=== PATIENT | female | born 1980 | race Hispanic/Latino ===

== ENCOUNTER 2017-04-02 13:58 | Emergency (ER) | payer SELFPAY ==
[2017-04-02 15:21] LABS: APPEARANCE,URINE Cloudy (CLEAR); BILIRUBIN,URINE Negative (NEGATIVE); COLOR,URINE Yellow (YELLOW); GLUCOSE, URINE (UA) Negative (NEGATIVE); KETONES,URINE Negative (NEGATIVE); LEUKOCYTE ESTERASE ,URINE Small (NEGATIVE); NITRATE,URINE Negative (NEGATIVE); OCCULT BLOOD,URINE Negative (NEGATIVE); PROTEIN,URINE Negative (NEGATIVE); UROBILINOGEN,URINE 0.2 mg/dL (0.2-1.0)
[2017-04-02 15:23] LABS: HCG,QUAL RESULT NEGATIVE (NEGATIVE)
[2017-04-02] MEDS ORDERED: IBUPROFEN 600 MG TABLET ONE (15:37)
[2017-04-02 15:38] LABS: BACTERIA,URINE Few /HPF (None Seen); RBC,URINE None Seen /HPF (0-1); WBC,URINE 0-1 /HPF (0-1)
== END 2017-04-02 16:01 | disposition home or self-care (01) ==
LOC: EDH 13:58
DX: S50.01XA Contusion of right elbow, initial encounter (principal); S80.02XA Contusion of left knee, initial encounter; R10.9 Unspecified abdominal pain; J45.909 Unspecified asthma, uncomplicated; Y04.8XXA Assault by other bodily force, initial encounter; Y93.89 Activity, other specified; Y92.098 Other place in other non-institutional residence as the place of occurrence of the external cause; Y99.8 Other external cause status
CPT/HCPCS: 81001; 81025

== ENCOUNTER 2019-04-18 05:12 | Emergency (ER) | payer SELFPAY | END 2019-04-18 06:20 | LOC: EDH 05:12 | DX: Z02.89 Encounter for other administrative examinations (principal); J45.909 Unspecified asthma, uncomplicated; M19.90 Unspecified osteoarthritis, unspecified site; Z98.890 Other specified postprocedural states; Z72.0 Tobacco use | CPT/HCPCS: 93005 ==

== ENCOUNTER 2021-11-12 23:38 | Emergency (ER) | payer OTHER ==
[~2021-11-12] VITALS: Ht 160 cm; Wt 176.4 kg
[~2021-11-12 23:38] MED LIST: BUDE90AE IH; CEFD300C3 PO; HYDR12.54 PO; HYDR25TA PO; LEVA15HF3 IH; METO50TA18 PO; NITR0.4T50 SL; OXYB5TAB27 PO; PHEN-948 PO; TAMS-1 PO; TRAM50TA4 PO
[2021-11-13 00:30] LABS: APPEARANCE,URINE CLEAR (CLEAR); BILIRUBIN,URINE NEGATIVE (NEGATIVE); COLOR,URINE YELLOW (YELLOW); GLUCOSE, URINE (UA) NEGATIVE (NEGATIVE); KETONES,URINE 5 mg/dL (NEGATIVE); LEUKOCYTE ESTERASE ,URINE NEGATIVE (NEGATIVE); NITRATE,URINE NEGATIVE (NEGATIVE); OCCULT BLOOD,URINE NEGATIVE (NEGATIVE); PH,URINE 6.5 (5.0-8.0); PROTEIN,URINE NEGATIVE (NEGATIVE); UROBILINOGEN,URINE 0.2 mg/dL (0.2-1.0)
[2021-11-13] MEDS ORDERED: POLYOS OD (01:28)
[2021-11-13 01:33] VITALS: BP 124/68
== END 2021-11-13 01:38 | disposition home or self-care (01) ==
LOC: EDH 23:38
DX: B34.9 Viral infection, unspecified (principal); H10.9 Unspecified conjunctivitis; Z20.822 Contact with and (suspected) exposure to COVID-19; I10 Essential (primary) hypertension; J45.909 Unspecified asthma, uncomplicated; Z79.51 Long term (current) use of inhaled steroids; Z79.899 Other long term (current) drug therapy; Z90.49 Acquired absence of other specified parts of digestive tract
CPT/HCPCS: 99283; 87635; 87880; 87804 ×2; 81003; 81025; C9803

== ENCOUNTER 2022-08-01 10:03 | Emergency (ER) | payer OTHER ==
[~2022-08-01] VITALS: Ht 157.5 cm; Wt 177.8 kg
[~2022-08-01 10:03] MED LIST changes: +ACET-2079 PO; +AMOX-426 PO; +DICY20TA2 PO; +ONDA-104 PO; +PANT40TA54 PO; +POLYOS OD
[2022-08-01 11:00] LABS: HEMATOCRIT 38.6 % (36-48); MEAN CORPUSCULAR HEMOGLOBIN 29.1 pg (27.0-33.0); MEAN CORPUSCULAR HGB CONC 31.9 g/dL (32.0-36.0); MEAN CORPUSCULAR VOLUME 91.5 fL (79-99); RED BLOOD CELL COUNT(AUTO) 4.22 MIL/uL (4.00-5.50); RED CELL DISTRIBUTION WIDTH 14.3 % (11.0-15.5); WHITE BLOOD COUNT (AUTO) 7.8 K/uL (4.8-10.8)
[2022-08-01 11:07] LABS: CARBON DIOXIDE 32 mmol/L (21-32); CHLORIDE 104 mmol/L (101-111); CREATININE 0.8 mg/dL (0.5-1.5); GLOMERULAR FILTR. RATE CALC 95 mL/min (>90); GLUCOSE,RANDOM 110 mg/dL (70-105); POTASSIUM 3.9 mmol/L (3.5-5.1); SODIUM SERUM 141 mmol/L (136-145); UREA NITROGEN, BLOOD 11 mg/dL (7-18)
[2022-08-01 11:12] LABS: ALANINE AMINOTRANSFERASE 21 U/L (12-78); ALBUMIN 3.3 g/dL (3.5-5.0); ASPARTATE AMINOTRANSFERASE 16 U/L (10-37); TOTAL PROTEIN, SERUM 7.3 g/dL (6.0-8.3)
[2022-08-01 11:18] LABS: AMPHET/METH SCREEN,URINE NEGATIVE (NEGATIVE); BARBITURATE SCREEN, URINE NEGATIVE (NEGATIVE); BENZODIAZEPINES SCREEN,URINE NEGATIVE (NEGATIVE); CANNABINOID SCREEN,URINE NEGATIVE (NEGATIVE); COCAINE SCREEN,URINE NEGATIVE (NEGATIVE); OPIATE SCREEN,URINE NEGATIVE (NEGATIVE); PHENCYCLIDINE SCREEN,URINE NEGATIVE (NEGATIVE)
[2022-08-01 11:28] LABS: APPEARANCE,URINE CLEAR (CLEAR); BILIRUBIN,URINE NEGATIVE (NEGATIVE); COLOR,URINE LIGHT-YELLOW (YELLOW); GLUCOSE, URINE (UA) NEGATIVE (NEGATIVE); KETONES,URINE NEGATIVE (NEGATIVE); LEUKOCYTE ESTERASE ,URINE 500 Leu/uL (NEGATIVE); NITRATE,URINE NEGATIVE (NEGATIVE); PH,URINE 5.5 (5.0-8.0); PROTEIN,URINE NEGATIVE (NEGATIVE); UROBILINOGEN,URINE 0.2 mg/dL (0.2-1.0)
[2022-08-01 11:38] LABS: MUCUS,URINE RARE LPF (None Seen); SQUAMOUS EPITHELIAL CELL,UR FEW /HPF (0-2)
[2022-08-01 12:15] VITALS: BP 131/69
[2022-08-01] MEDS ORDERED: CEPH500C2 PO (12:36)
== END 2022-08-01 12:50 | disposition home or self-care (01) ==
LOC: EDH 10:03
DX: R00.2 Palpitations (principal); N39.0 Urinary tract infection, site not specified; J45.909 Unspecified asthma, uncomplicated; I10 Essential (primary) hypertension; K21.9 Gastro-esophageal reflux disease without esophagitis; M79.7 Fibromyalgia; Z79.51 Long term (current) use of inhaled steroids; Z79.899 Other long term (current) drug therapy; Z90.49 Acquired absence of other specified parts of digestive tract
CPT/HCPCS: 36415; 71045; 80053; 80305; 81001; 84484; 85027; 87088; 93005

== ENCOUNTER 2023-01-14 18:04 | Emergency (ER) | payer BC, OTHER ==
[~2023-01-14] VITALS: Ht 160 cm; Wt 181.4 kg
[~2023-01-14 18:04] MED LIST changes: +CEPH500C2 PO
[2023-01-14] MEDS ORDERED: 0.9%NACL 1000ML 1,000 ML IV ONE (19:30)
[2023-01-14] MEDS ORDERED: ONDANSETRON 4MG INJ IVP ONE (19:30)
[2023-01-14 19:49] LABS: BASOPHILS # (AUTO) 0.01 K/uL (0.00-0.20); BASOPHILS % (AUTO) 0.2 % (0.0-5.0); EOSINOPHILS # (AUTO) 0.02 K/uL (0.00-0.70); EOSINOPHILS % (AUTO) 0.4 % (0.0-8.0); HEMATOCRIT 37.7 % (36-48); IMMATURE GRANULOCYTE ABSOLUTE 0.02 K/uL (0-1); LYMPHOCYTES # (AUTO) 0.7 K/uL (1.0-4.8); LYMPHOCYTES % (AUTO) 13.5 % (21.0-51.0); MEAN CORPUSCULAR HEMOGLOBIN 30.4 pg (27.0-33.0); MEAN CORPUSCULAR HGB CONC 33.4 g/dL (32.0-36.0); MEAN CORPUSCULAR VOLUME 90.8 fL (79-99); MONOCYTES # (AUTO) 0.5 K/uL (0.1-1.0); MONOCYTES % (AUTO) 9.7 % (3.0-13.0); NEUTROPHILS # (AUTO) 3.8 K/uL (1.8-7.7); NEUTROPHILS % (AUTO) 75.8 % (40.0-77.0); PLATELET COUNT (AUTO) 167 K/uL (130-400); RED BLOOD CELL COUNT(AUTO) 4.15 MIL/uL (4.00-5.50); RED CELL DISTRIBUTION WIDTH 14.3 % (11.0-15.5)
[2023-01-14 19:56] LABS: CREATININE 0.9 mg/dL (0.5-1.5); POTASSIUM 3.2 mmol/L (3.5-5.1)
[2023-01-14 20:01] LABS: ALBUMIN 3.1 g/dL (3.5-5.0); BILIRUBIN,TOTAL 0.2 mg/dL (0.2-1.0); TOTAL PROTEIN, SERUM 7.6 g/dL (6.0-8.3)
[2023-01-14 20:03] LABS: SARS-CoV-2, RNA, NAAT NEGATIVE SARS CoV-2 (NEGATIVE)
[2023-01-14 20:09] LABS: INFLUENZA TYPE B Negative For Type B (NEGATIVE)
[2023-01-14 20:15] LABS: APPEARANCE,URINE CLEAR (CLEAR); BILIRUBIN,URINE NEGATIVE (NEGATIVE); COLOR,URINE COLORLESS (YELLOW); GLUCOSE, URINE (UA) NEGATIVE (NEGATIVE); KETONES,URINE NEGATIVE (NEGATIVE); LEUKOCYTE ESTERASE ,URINE NEGATIVE Leu/uL (NEGATIVE); NITRATE,URINE NEGATIVE (NEGATIVE); OCCULT BLOOD,URINE NEGATIVE (NEGATIVE); PH,URINE 7.5 (5.0-8.0); PROTEIN,URINE NEGATIVE (NEGATIVE); UROBILINOGEN,URINE 0.2 mg/dL (0.2-1.0)
[2023-01-14 20:16] LABS: INFLUENZA TYPE A Positive For Type A (NEGATIVE)
[2023-01-14 20:18] LABS: ADD UA MICROSCOPIC NO
[2023-01-14] MEDS ORDERED: IOHEXOL-350 75 ML VIAL IV ONE (21:13)
[2023-01-14] MEDS ORDERED: ACETAMINOPHEN 500 MG TABLET PO ONE (21:30)
[2023-01-15] MEDS ORDERED: CLONIDINE HCL 0.2 MG TABLET PO ONE
[2023-01-15 00:14] VITALS: BP 130/69; PULSE 93; RESP 18; O2SAT 97
[2023-01-15] MEDS ORDERED: GUAI600T50 PO (00:28)
[2023-01-15] MEDS ORDERED: AZIT250T9 PO (00:28)
[2023-01-15] MEDS ORDERED: OSEL75 PO (00:40)
== END 2023-01-15 00:42 | disposition home or self-care (01) ==
LOC: EDH 18:04
DX: J11.1 Influenza due to unidentified influenza virus with other respiratory manifestations (principal); J20.9 Acute bronchitis, unspecified; I10 Essential (primary) hypertension; J45.909 Unspecified asthma, uncomplicated; K21.9 Gastro-esophageal reflux disease without esophagitis; M79.7 Fibromyalgia; Z79.51 Long term (current) use of inhaled steroids; Z79.899 Other long term (current) drug therapy; Z90.49 Acquired absence of other specified parts of digestive tract; Z20.822 Contact with and (suspected) exposure to COVID-19
CPT/HCPCS: 99284; 96374; 71270; 71045; 87635; 80053; 85025; 85378; 87040 ×2; 87804 ×2; 83605 ×2; 81003; 81025; 36415; 93005; C9803; J7030; J2405; Q9967

== ENCOUNTER 2024-07-06 17:43 | Emergency (ER) | payer BC, OTHER ==
[~2024-07-06] VITALS: Ht 157.5 cm; Wt 183.7 kg
[~2024-07-06 17:43] MED LIST changes: +AZIT250T9 PO; -BUDE90AE IH; +BUDE90AE3 IH; +GUAI600T50 PO; +OSEL75 PO; -TAMS-1 PO; +TAMS-55 PO
[2024-07-06 18:26] LABS: HEMATOCRIT 38.6 % (36-48); MEAN CORPUSCULAR HEMOGLOBIN 29.8 pg (27.0-33.0); MEAN CORPUSCULAR HGB CONC 33.2 g/dL (32.0-36.0); MEAN CORPUSCULAR VOLUME 89.8 fL (79-99); PLATELET COUNT (AUTO) 172 K/uL (130-400); RED CELL DISTRIBUTION WIDTH 13.6 % (11.0-15.5); WHITE BLOOD COUNT (AUTO) 8.2 K/uL (4.8-10.8)
--- NOTE | 2024-07-06 18:26 | ERN ---
ED Note History of Present Illness Stated Complaint: CHEST PAIN Chief Complaint: Chest Pain Time Seen by MD: 17:44 Time Seen by Midlevel: 17:50 Dictation: 44-year-old female coming in via EMS for chest tightness. Patient states she was at her jaw when she began to feel lightheaded, elevated heart rate and elevated blood pressure. Patient states she does take metoprolol 50 mg b.i.d., and lisinopril. Patient also has a history of diabetes and cardiomyopathy after her delivery. Patient's surgical history includes and gastric sleeve. Denies having any fever, nausea, vomiting or diarrhea. Allergies: Coded Allergies: No Known Drug Allergies (Unverified Allergy, Unknown, 01/15/23) Home Meds Active Scripts Oseltamivir Phosphate (Tamiflu) 75 Mg Cap, 75 MG PO BID for 5 Days, #10 CAP Prov:KRISTIN MENDOZA [facility] 01/15/23 Guaifenesin (Mucinex) 600 Mg Tablet.er, 600 MG PO BID, #20 TAB Prov:KRISTIN MENDOZA [facility] 01/15/23 Azithromycin (Azithromycin) 250 Mg Tablet, 250 MG PO DAILY, #6 TAB Prov:KRISTIN MENDOZA [facility] 01/15/23 Cephalexin (Cephalexin) 500 Mg Capsule, 500 MG PO TID for UTI for 7 Days, #21 CAP 0 Refills Prov:MANINDER REINOSO MD 08/01/22 Ondansetron HCl (Ondansetron HCl) 4 Mg Tablet, 4 MG PO TID for 3 Days, #9 TAB Prov:DANIEL DEL CASTILLO 06/12/22 Acetaminophen with Codeine (Acetaminophen-Cod #3 Tablet) 1 Each Tablet, 1 TAB PO Q4H PRN for abdominal pain for 3 Days, #6 TAB Prov:DANIEL DEL CASTILLO 06/12/22 Pantoprazole Sodium (Pantoprazole Sodium) 40 Mg Tablet.dr, 40 MG PO DAILY for 14 Days, #28 TAB Prov:DANIEL DEL CASTILLO 06/12/22 Dicyclomine HCl (Bentyl) 20 Mg Tab, 20 MG PO BID for 5 Days, #10 TAB Prov:DANIEL DEL CASTILLO 06/12/22 Amoxicillin/Potassium Clav (Augmentin 500-125 Tablet) 1 Each Tablet, 1 EACH PO TID for 10 Days, #30 TAB Prov:DANIEL DEL CASTILLO 06/12/22 Polymyxin B Sulfate/Tmp (Polytrim Ophth Soln) 20 Drop/Ml Opsol, 2 DROP OD TID for 7 Days, #10 ML 0 Refills Prov:MARTHA WALLACE MD 11/13/21 Tramadol Hcl (Tramadol HCl) 50 Mg Tablet, 50 MG PO Q8H for 30 Days, #30 TAB Prov:SARITA AVILA NP 08/31/21 Hydrochlorothiazide (Hydrochlorothiazide) 25 Mg Tablet, 12.5 MG PO DAILY for 30 Days, #30 TAB Prov:SARITA AVILA NP 08/31/21 Oxybutynin Chloride (Ditropan Xl) 5 Mg Tab.er.24, 10 MG PO TID for 30 Days, #90 TAB Prov:SARITA AVILA NP 08/31/21 Cefdinir (Cefdinir) 300 Mg Capsule, 300 MG PO BID for 7 Days, #1 CAP Prov:SARITA AVILA NP 08/27/21 Tamsulosin HCl (Flomax) 0.4 Mg Cap.er.24h, 0.4 MG PO HS for 14 Days, #14 CAPSULE.DR Prov:SARITA AVILA NP 08/27/21 Phenazopyridine HCl (Phenazopyridine HCl) 200 Mg Tablet, 200 MG PO Q8H PRN for urinary spasm for 7 Days, #30 TAB Prov:SARITA AVILA NP 08/27/21 Reported Medications Nitroglycerin (Nitroglycerin) 0.4 Mg Tab.subl, 0.4 MG SL AD PRN for CHEST PAIN, TAB.SL 08/24/21 Budesonide (Pulmicort Flexhaler) 90 Mcg Aer.pow.ba, 90 MCG IH DAILY 08/24/21 Levalbuterol Tartrate (Levalbuterol Tartrate Hfa) 15 Gm Hfa.aer.ad, 45 MCG IH AD 08/24/21 Hydrochlorothiazide (Hydrochlorothiazide) 12.5 Mg Tablet, 12.5 MG PO DAILY, TAB 08/24/21 Metoprolol Tartrate (Metoprolol Tartrate) 50 Mg Tablet, 50 MG PO BID, TAB 08/24/21 Past Medical History Past Medical History: Diabetes-Type II, High Cholesterol, Hypertension Additional Past Medical Hx: CARDIOMYOPATHY, MITRAL VALVE REGURGITATION Surgical History: Other, Surgical History Other: GASTRIC SLEEVE, CARPARL TUNNEL RELEASE Social History: Negative, Lives with family, Other Review of System Dictation Constitutional: Negative for fever,chills, and weight loss Eyes: Negative for injury, pain,redness, and discharge ENT: Negative for injury,pain or swelling Cardiovascular: Complaining of chest pain and palpitations, no and edema Respiratory: Negative for shortness of breath, cough, and wheezing, Abdomen/GI: Negative for abdominal pain, nausea, vomiting, diarrhea, and constipation Back: Negative for injury and pain : Negative for injury, bleeding and discharge MS/Extremity: Negative for injury and deformity Skin: Negative for rash, and discoloration Neuro: Negative for headache, weakness, numbness, tingling, and seizure Psych: Negative for suicide ideation, homicidal ideation, and hallucinations Review of Systems: was completed Initial Vital Sign VS Vital Signs Date Time Temp Pulse Resp B/P (MAP) Pulse Ox O2 Delivery O2 Flow Rate FiO2 07/06/24 17:44 98.2 102 19 145/60 98 Room Air 0 07/06/24 18:41 21 Physical Exam Dictation General: awake, alert, NAD Head/Face: Normocephalic, atraumatic Eyes: PERRL, EOMI, vision at baseline ENT: oral cavity clear, TMs clear, no signs of infection Neck: Trachea midline, supple, no nuchal rigidity Cardiovascular: RRR, normal S1/S2, No MRGs, no JVD Respiratory: CTAB, no respiratory distress, No rales or wheezes Abdomen: Soft, non-tender, non-distended, normal bowel sounds, no guarding or rebound. Skin: Warm, dry, normal turgor, no rash MS/Extremity: Pulses equal, no cyanosis, neurovascular intact, FROM Neuro: COAx4, GCS 15, strength 5/5, CN 2-12 intact, normal cerebellar exam, normal gait, Psych: Normal behavior, mood, and affect normal Results (Laboratory/Radiology) Laboratory/Radiology Laboratory Tests Test 07/06/24 18:14 07/06/24 19:35 White Blood Count 8.2 K/uL (4.8-10.8) Red Blood Count 4.30 MIL/uL (4.00-5.50) Hemoglobin 12.8 g/dL (12.0-16.0) Hematocrit 38.6 % (36-48) Mean Corpuscular Volume 89.8 fL (79-99) Mean Corpuscular Hemoglobin 29.8 pg (27.0-33.0) Mean Corpuscular Hemoglobin Concent 33.2 g/dL (32.0-36.0) Red Cell Distribution Width 13.6 % (11.0-15.5) Platelet Count 172 K/uL (130-400) Mean Platelet Volume 11.0 fL (7.5-10.5) H Segmented Neutrophils % 59 % (40-70) Lymphocytes % (Manual) 34 % (22-44) Monocytes % (Manual) 6 % (2-9) Eosinophils % (Manual) 1 % (1-6) Nucleated Red Blood Cells 0.0 % (0.0-0.19) Differential Comment MANUAL DIFFERENTIAL White Cell Morphology Comment SLIDE REVIEWED Platelet Morphology Comment SLIGHTLY DECREASED Red Blood Cell Morphology ANISO 1+ Sodium Level 136 mmol/L (136-145) Potassium Level 3.1 mmol/L (3.5-5.1) L Chloride Level 100 mmol/L (101-111) L Carbon Dioxide Level 24 mmol/L (21-32) Blood Urea Nitrogen 10 mg/dL (7-18) Creatinine 0.8 mg/dL (0.5-1.0) Glomerular Filtration Rate Calc 94 mL/min (>90) Random Glucose 124 mg/dL (70-105) H Total Calcium 8.9 mg/dL (8.5-10.1) Troponin I High Sensitivity 12 ng/L (4-50) 9 ng/L (4-50) B-Type Natriuretic Peptide 15 pg/mL (0-100) Labs Reviewed?: Yes EKG Comment: EKGs done at 5:40 p.m. for read sinus tachycardia at a rate of 102. Legs axis deviation, low voltage, precordial leads. No STEMI interpreted by ER ED Course ED Course Orders Procedure Category Date Status Time Cbc W Manual Diff LAB 07/06/24 Complete 17:48 Basic Metabolic Panel LAB 07/06/24 Complete 17:48 B-Type Natriuretic LAB 07/06/24 Complete Peptide 17:48 Troponin I High LAB 07/06/24 Complete Sensitivity 17:48 12 Lead Ekg Tracing- EKG 07/06/24 Logged Technical 17:48 Chest 1vw RAD 07/06/24 Resulted 17:48 Potassium Bicarb/Cit PHA 07/06/24 Complete Ac 25meq (K-Lyte Ta 18:57 Aspirin 81mg Chew Tab PHA 07/06/24 Complete (Aspirin 81mg Chew 18:57 Troponin I High LAB 07/06/24 Complete Sensitivity 19:25 Current Medications Medications (Trade) Dose Ordered Sig/Kay Route PRN Reason Start Time Stop Time Status Last Admin Dose Admin Aspirin (Aspirin 81mg Chew Tab) 324 mg ONCE STAT PO 07/06/24 18:57 07/06/24 19:00 DC 07/06/24 19:51 Potassium Bicarbonate (K-Lyte Tablet Eff 25 Meq Tablet.eff) 50 meq ONCE STAT PO 07/06/24 18:57 07/06/24 19:00 DC 07/06/24 19:50 Vital Signs Date Time Temp Pulse Resp B/P (MAP) Pulse Ox O2 Delivery O2 Flow Rate FiO2 07/06/24 19:55 98.8 108 18 146/80 99 Room Air* 0 21 07/06/24 18:41 98.4 99 24 141/69 100 Room Air* 0 21 07/06/24 17:44 98.2 102 19 145/60 98 Room Air 0 HEART Score Response (Comments) Value History: Low suspicion (0) 0 EKG: Normal 0 Age: < 45yrs (0) 0 Risk Factors: 3+ risk factors (+2) 2 Initial Troponin: Normal limit (0) 0 Total 2 Medical Decision Making MDM MDM:44-year-old female coming in via EMS for chest tightness. Patient states she was at her jaw when she began to feel lightheaded, elevated heart rate and elevated blood pressure. Patient states she does take metoprolol 50 mg b.i.d., and lisinopril. Patient also has a history of diabetes and cardiomyopathy after her delivery. Patient's surgical history includes and gastric sleeve. Denies having any fever, nausea, vomiting or diarrhea. Blood work unremarkable. Only positive for hypokalemia which was replaced in the emergency room. Troponin x2 negative. Heart score of two, low risk. Discussed with the patient's findings. Educated patient she needs to follow up with the aviation metalsmith as scheduled in July or return to the hospital if symptoms worsen. Patient verbalized understanding, answered all questions. Differential diagnosis: Arrhythmia, ACS, anxiety, dehydration Rationale: Tests considered and ordered secondary to shared decision making include: Previous outside records reviewed: Old ER visits. Risk of complication and/or morbidity or mortality of patient management: None Medications-Per medication reconciliation Need for hospitalization: Patient does not meet criteria for hospitalization. Need for emergency major/minor surgery: No There are no social concerns with this patient. Prescription drug management Prescriptions will include symptomatic care Patient's prior external medical records from other ER visits were reviewed by me as indicated. Prior testing and results from previous visits were reviewed. Prior tests were taken into account with medical decision making and resource utilization, independent historian/historians were used to obtain complete medical history. I independently interpreted the test that were performed, results were reviewed by me and considered findings on radiology if ordered. Medical management and examination interpretation discussions were had by me with other qualified healthcare professionals as indicated for the patient's care. DX & DISP Disposition: Discharge Departure Impression: Primary Impression: Hypokalemia Condition: Stable Additional Instructions: Please follow up with the aviation metalsmith as scheduled. Return to the hospital as needed if symptoms worsen. Referrals: RAUL IRWIN DO (PCP) Time of Disposition: 20:14 I have reviewed the case, and I agree with, Diagnosis and Plan SANIYA PAT NP Jul 06, 2024 18:26
[2024-07-06 18:36] LABS: CREATININE 0.8 mg/dL (0.5-1.0); POTASSIUM 3.1 mmol/L (3.5-5.1)
--- NOTE | 2024-07-06 18:37 | HMCIMG ---
Exam Type: CHEST 1VW Clinical Information: cp Comparison: None Findings: The lungs are clear of infiltrates. The heart is normal in size. The bony and soft tissue structures of the chest are unremarkable. Impression: Clear lungs.
--- NOTE | 2024-07-06 18:54 | NUR ---
PT PRESESNTS TO ED C/O SOB, CHEST PAIN AND BACK PAIN ALONG WITH DIZZINESS. ONSET OF 1630. PT REPORTS SHE HAS A SENSATION OF PRESSURE FROM HER BACK THAT RADIATES TO HER CHEST. 09/23 PAIN LEVEL.
[2024-07-06 18:55] LABS: B-TYPE NATRIURETIC PEPTIDE 15 pg/mL (0-100)
[2024-07-06 19:17] LABS: EOSINOPHILS % (MANUAL) 1 % (1-6); LYMPHOCYTES % (MANUAL) 34 % (22-44); MONOCYTES % (MANUAL) 6 % (2-9); SEGMENTED NEUTROPHILS % 59 % (40-70); TOTAL CELLS COUNTED 100
[2024-07-06 19:18] LABS: MAN.DIFF COMMENT-IMPRESSION MANUAL DIFFERENTIAL; PLATELET MORPHOLOGY COMMENT SLIGHTLY DECREASED; WBC MORPHOLOGY SLIDE REVIEWED
[2024-07-06] MEDS: PoTASSium BIcarbonate/CIT AC 25 MEQ TABLET.EFF PO STA (19:50)
[2024-07-06] MEDS: ASPIRIN 81MG CHEW TAB PO STA (19:51)
[2024-07-06] MEDS: FAMOTIDINE 20MG VIAL IV ONE (20:31)
[2024-07-06] MEDS: FAMOTIDINE 20MG VIAL IV STA (20:32)
[2024-07-06] MEDS: ondanSETRON 4MG INJ IVP STA (21:20)
[2024-07-06] MEDS: ondanSETRON 4MG INJ ONE (21:20)
[2024-07-06] MEDS: morPHINE 2 MG SYG IVP STA (21:20)
[2024-07-06 21:25] VITALS: BP 140/78; PULSE 87; RESP 22; TEMP 98.8; O2SAT 98
--- NOTE | 2024-07-07 06:44 | EKG ---
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
== END 2024-07-06 22:01 | disposition home or self-care (01) ==
LOC: EDH 17:43
DX: E87.6 Hypokalemia (principal); E11.9 Type 2 diabetes mellitus without complications; E78.00 Pure hypercholesterolemia, unspecified; I10 Essential (primary) hypertension; Z79.51 Long term (current) use of inhaled steroids; Z79.899 Other long term (current) drug therapy
CPT/HCPCS: 36415; 71045; 80048; 83880; 84484; 85025; 93005; 96374; 96375; 99285; J2270; J2405; J3490